=== PATIENT | female | born 1970 | race Caucasian/White ===

== ENCOUNTER 2016-08-05 22:16 | Emergency (ER) | payer MEDICAID ==
[~2016-08-05] VITALS: Ht 160 cm; Wt 113.0 kg
[2016-08-05 23:27] VITALS: Ht 160 cm; Wt 113.0 kg
[2016-08-06] MEDS ORDERED: MTF1000T PO (00:15)
[2016-08-06] MEDS ORDERED: GLIP5TAB13 PO (00:15)
--- NOTE | 2016-08-06 00:17 | ERD ---
ER Documentation Chief Complaint Date/Time DATE: 08/06/16 TIME: 00:14 Chief Complaint Chest pain x3 days ago HPI 46-year-old female presents here in emergency department for complaints of left- sided chest pain started 3 days ago. Patient described pain as sharp pain, 6/10 scale, rated to the left arm. Patient denies any dizziness or dyspnea exertion or dyspnea lying down. Patient denies any dizziness. Patient denies any cough. Patient denies any shortness of breath. Patient denies any acid reflux. She did not take any medication to help with symptoms ROS All systems reviewed and are negative except as per history of present illness. Medications Home Meds Reported Medications Glipizide* (Glipizide*) Unknown Strength Tablet, PO DAILY, TAB 08/06/16 Metformin* (Glucophage*) Unknown Strength Tablet, PO DAILY, #20 TAB 08/06/16 Allergies Allergies: Coded Allergies: No Known Allergies (Verified Allergy, Mild, 11/13/09) PMhx/Soc History of Surgery: Yes (APPENDECTOMY) Anesthesia Reaction: No Hx Neurological Disorder: No Hx Respiratory Disorders: No Hx Cardiac Disorders: No Hx Psychiatric Problems: No Hx Miscellaneous Medical Probl: No Hx Alcohol Use: No Hx Substance Use: No Hx Tobacco Use: No Smoking Status: Never smoker FmHx Family History: No coronary disease, No diabetes, No other Physical Exam Vitals Vital Signs Date Time Temp Pulse Resp B/P Pulse Ox O2 Delivery O2 Flow Rate FiO2 08/05/16 23:27 96.9 83 18 143/85 100 Physical Exam GENERAL: The patient is well developed and appropriate for usual state of health, in no apparent distress. CHEST: Clear to auscultation bilaterally. There are no rales, wheezes or rhonchi. HEART: Regular rate and rhythm. No murmurs, clicks, rubs or gallops. No S3 or S4. ABDOMEN: Soft, nontender and nondistended. Good bowel sounds. No rebound or guarding. No gross peritonitis. No gross organomegaly or masses. No Sepulveda sign or McBurney point tenderness. BACK: No midline or flank tenderness. EXTREMITIES: Equal pulses bilaterally. There is no peripheral clubbing, cyanosis or edema. No focal swelling or erythema. Full range of motion. Grossly neurovascularly intact. NEURO: Alert and oriented. Cranial nerves 2-12 intact. Motor strength in all 4 extremities with 5/5 strength. Sensation grossly intact. Normal speech and gait. SKIN: There is no apparent rash or petechia. The skin is warm and dry. HEMATOLOGIC AND LYMPHATIC: There is no evidence of excessive bruising or lymphedema. No gross cervical, axillary, or inguinal lymphadenopathy. Result Diagram: 08/06/16 0020 08/06/16 0020 Results 24 hrs Laboratory Tests Test 08/06/16 00:20 08/06/16 03:00 White Blood Count 11.610^3/ul Red Blood Count 4.9910^6/ul Hemoglobin 13.6g/dl Hematocrit 43.6% Mean Corpuscular Volume 87.4fl Mean Corpuscular Hemoglobin 27.3pg Mean Corpuscular Hemoglobin Concent 31.2g/dl Red Cell Distribution Width 13.1% Platelet Count 28733^3/UL Mean Platelet Volume 12.2fl Neutrophils % 62.8% Lymphocytes % 31.0% Monocytes % 4.9% Eosinophils % 0.7% Basophils % 0.4% Nucleated Red Blood Cells % 0.0/100WBC Neutrophils # 7.310^3/ul Lymphocytes # 3.610^3/ul Monocytes # 0.610^3/ul Eosinophils # 0.110^3/ul Basophils # 0.110^3/ul Nucleated Red Blood Cells # 0.010^3/ul Prothrombin Time 12.9Sec Prothrombin Time Ratio 1.0 INR International Normalized Ratio 0.97 Activated Partial Thromboplast Time 30.3Sec Sodium Level 136mmol/L Potassium Level 4.7mmol/L Chloride Level 103mmol/L Carbon Dioxide Level 23mmol/L Anion Gap 15 Blood Urea Nitrogen 13mg/dl Creatinine 0.71mg/dl Glucose Level 122mg/dl Calcium Level 9.6mg/dl Total Bilirubin 0.2mg/dl Direct Bilirubin 0.00mg/dl Indirect Bilirubin 0.2mg/dl Aspartate Amino Transf (AST/SGOT) 53IU/L Alanine Aminotransferase (ALT/SGPT) 60IU/L Alkaline Phosphatase 89IU/L Troponin I < 0.010ng/ml < 0.012ng/ml Total Protein 8.2g/dl Albumin 4.5g/dl Globulin 3.70g/dl Albumin/Globulin Ratio 1.21 2224 EKG was done, read by me and is normal sinus rhythm at a rate of 93, normal axis, normal sinus rhythm with low-voltage QRS, possible inferior infarct , age undetermined, cannot rule out anterior infarct, age undetermined, abnormal EKG. Patient's EKG was also reviewed by Dr. Chaparro. Impression: no acute findings on EKG 0307 EKG was done, read by me and is normal sinus rhythm at a rate of 73, normal axis, low-voltage QRS, cannot rule out inferior infarct, age undetermined , cannot rule out anterior infarct, age undetermined, abnormal ECG. Patient's EKG was also reviewed by Dr. Chaparro. Impression: no acute findings on EKG PROCEDURE: CHEST - 1 VIEW CLINICAL INDICATION: 46-year-old female with chest pain. TECHNIQUE: A single frontal AP portable view of the chest was performed. The images were reviewed on a PACS workstation. COMPARISON: None. FINDINGS: The cardiomediastinal silhouette has a normal appearance. There is mild elevation right hemidiaphragm. There is minimal right basilar subsegmental atelectasis. There is a nodular density within the right upper lung zone measuring 10 x 9 mm. There is no evidence for an infiltrate. There is no evidence for congestive heart failure. There is no evidence for pneumothorax. The osseous structures are intact. IMPRESSION: 1. Right upper lobe nodular density measuring 10 x 9 mm. This may represent granuloma however prior studies are not available to assess interval change. 2. Mild elevation right hemidiaphragm with minimal right basilar subsegmental atelectasis. .Quintin Mcneill MD, MD Date Time Electronically viewed and signed by .Quintin Mcneill MD, on 08/06/2016 01:19 .M/ CC: SHAYNE JIMENEZ NP Procedures/[facility] Medical Decision Making: Patient's chest pain nonspecific at this time, can be musculoskeletal pain, can be also acid reflux. There is low suspicion for cardiopulmonary emergencies at this time. Patient has low risk factors. EKG is normal, there is no changes in the EKG that indicates cardiac emergencies. Chest X-ray does not show cardiopulmonary emergencies at this time. There is low suspicion for aortic aneurysm, myocardial infarction, pneumothorax, pleural effusion, pulmonary embolism, or any other cardiopulmonary emergencies at this time. Cardiac markers are normal done twice. I discussed this case with my attending physician, Dr. Chaparro, recommended outpatient management and follow-up with outpatient performance specialist, admission not necessary at this time. Low suspicion for acute coronary syndrome. Departure Diagnosis: Primary Impression: Atypical chest pain Condition: Stable Patient Instructions: Chest Pain, Uncertain Cause Additional Instructions: see performance specialist, return for worsening s/s SHAYNE JIMENEZ NP Aug 06, 2016 00:16
[2016-08-06 00:38] LABS: ADD SCAN DIFF NO
[2016-08-06 00:40] LABS: BASOPHIL # 0.1 10^3/ul (0.0-0.1); BASOPHILS % 0.4 % (0.0-2.0); EOSINOPHILS # 0.1 10^3/ul (0.0-0.5); EOSINOPHILS % 0.7 % (0.0-7.0); HEMATOCRIT 43.6 % (37.0-47.0); HEMOGLOBIN 13.6 g/dl (12.0-16.0); LYMPHOCYTES # 3.6 10^3/ul (0.8-2.9); MEAN CORPUSCULAR HEMOGLOBIN 27.3 pg (29.0-33.0); MEAN CORPUSCULAR HGB CONC 31.2 g/dl (32.0-37.0); MEAN CORPUSCULAR VOLUME 87.4 fl (82.0-101.0); MEAN PLATELET VOLUME 12.2 fl (7.4-10.4); MONOCYTE # 0.6 10^3/ul (0.3-0.9); MONOCYTES % 4.9 % (0.0-11.0); NEUTROPHIL # 7.3 10^3/ul (1.6-7.5); NEUTROPHILS % 62.8 % (39.0-77.0); PLATELET COUNT 309 10^3/UL (140-415); RED BLOOD COUNT 4.99 10^6/ul (4.20-5.40); RED CELL DISTRIBUTION WIDTH 13.1 % (11.5-14.5); WHITE BLOOD COUNT 11.6 10^3/ul (4.8-10.8)
[2016-08-06 00:49] LABS: INR 0.97; PROTIME 12.9 Sec (12.2-14.2)
[2016-08-06 00:50] LABS: PARTIAL THROMBOPLASTIN TIME 30.3 Sec (25.0-35.0)
[2016-08-06 00:52] LABS: ALBUMIN 4.5 g/dl (3.3-4.9); CHLORIDE 103 mmol/L (97-110); POTASSIUM 4.7 mmol/L (3.5-5.1); SODIUM 136 mmol/L (135-144)
[2016-08-06 00:54] LABS: CREATININE 0.71 mg/dl (0.44-1.00)
[2016-08-06 00:55] LABS: ALANINE AMINOTRANSFERASE 60 IU/L (13-69); ALBUMIN/GLOBULIN RATIO 1.21; ALKALINE PHOSPHATASE 89 IU/L (42-121); ANION GAP 15 (8-16); ASPARTATE AMINO TRANSFERASE 53 IU/L (15-46); BILIRUBIN,INDIRECT 0.2 mg/dl (0-1.1); BILIRUBIN,TOTAL 0.2 mg/dl (0.2-1.3); BLOOD UREA NITROGEN 13 mg/dl (7-20); CALCIUM 9.6 mg/dl (8.4-10.2); CARBON DIOXIDE 23 mmol/L (21-31); GLUCOSE 122 mg/dl (70-220); TOTAL PROTEIN 8.2 g/dl (6.1-8.1)
[2016-08-06 01:08] LABS: TROPONIN-I < 0.010 ng/ml (0.00-0.12)
--- NOTE | 2016-08-06 01:19 | RADRPT ---
PROCEDURE: CHEST - 1 VIEW CLINICAL INDICATION: 46-year-old female with chest pain. TECHNIQUE: A single frontal AP portable view of the chest was performed. The images were reviewed on a PACS workstation. COMPARISON: None. FINDINGS: The cardiomediastinal silhouette has a normal appearance. There is mild elevation right hemidiaphrag m. There is minimal right basilar subsegmental atelectasis. There is a nodular density within the ri ght upper lung zone measuring 10 x 9 mm. There is no evidence for an infiltrate. There is no eviden ce for congestive heart failure. There is no evidence for pneumothorax. The osseous structures are i ntact. IMPRESSION: 1. Right upper lobe nodular density measuring 10 x 9 mm. This may represent granuloma however prio r studies are not available to assess interval change. 2. Mild elevation right hemidiaphragm with minimal right basilar subsegmental atelectasis. .Quintin Mcneill MD, MD Date Time Electronically viewed and signed by .Quintin Mcneill MD, on 08/06/2016 01:19 .M/
[2016-08-06 04:52] VITALS: BP 129/76; PULSE 74; RESP 20; TEMP 98.6
== END 2016-08-06 04:52 | disposition home or self-care (01) ==
LOC: FTE 22:16
DX: R07.89 Other chest pain (principal)
CPT/HCPCS: 36415; 71010; 80053; 84484; 85025; 85610; 85730; 93005; Z7502